=== PATIENT | female | born 1960 | race African-American/Black ===

== ENCOUNTER 2019-04-15 22:11 | Observation (INO) | payer SELFPAY ==
--- NOTE | 2019-04-15 22:44 | PDOC ---
History of Present Illness - General Chief Complaint: Chest Pain Stated Complaint: CHEST PAIN Time Seen by Provider: 04/15/19 22:44 - History of Present Illness Initial Comments: HPI: 58yo F with PMH of HTN, HLD, CHF, Pacemaker presenting with midsternal chest pain and shortness of breath since Tuesday. Patient has not taken her lasix since that time because her temporary insurance card did not work. She believes she is having this pain because of not being on lasix. Reports dyspnea on exertion, cannot walk to the bathroom without feeling short of breath. No PND, uses 1-2 pillows at night. Has not noticed any leg swelling. Is not on a fluid restricted diet. Chest pain is described as "pressure" and it is nonradiating. Reporting some associated diaphoresis and nausea, but no vomiting. Nonsmoker. No family history of heart problems. No hemoptysis, no recent surgical history, no recent immobilization, no hormone use, no history of DVT or PE. Last saw her inspector heating and refrigeration in July. Denies fever, but endorses chills. PCP: None Cardio: Dr. Alfaro Meds (via pill bottles brought in by patient): Losartan 25mg Carvedilol 25mg Furosemide 40mg Atorvastatin 20mg ROS: Constitutional: no fever, +chills HEENT: no throat pain, no dysphagia Cardiovascular: +chest pain, no palpitations Respiratory: no cyanosis, +shortness of breath Gastrointestinal: no abdominal pain, no diarrhea Genitourinary: no dysuria, no hematuria Musculoskeletal: no myalgia, no arthralgia Skin: no rash, no itching Neurologic: no headache, no syncope PE: General: Awake, alert, and fully oriented, in no acute distress Head: No signs of trauma Eyes: EOMI, sclera anicteric ENT: Moist mucus membranes Neck: Normal ROM, supple Lungs: Lungs clear, Normal breath sounds Cardio: Regular rhythm, S1 and S2 present Abdomen: Soft, nontender. No guarding, no rebound, no masses Extremities: Normal range of motion, Distal pulses present, No calf tenderness, No BLE edema SKIN: Warm, Dry, normal turgor Neurologic: Cranial nerves II through XII grossly intact. Normal speech ED Course/MDM: DDX including but not limited to ACS, PE, PNA, anemia, metabolic derangement Labs, EKG, CXR 04/15/19 22:44 EKG: rate 87, QTc 507, ventricular paced rhythm with p waves Tylenol for pain Home Lasix Will reassess 04/16/19 00:23 CBC WBC 7.4 K/mm3 (4.0-10.0) 04/15/19 23:30 RBC 5.38 M/mm3 (3.60-5.2) H 04/15/19 23:30 Hgb 12.5 GM/dL (10.7-15.3) 04/15/19 23:30 Hct 39.5 % (32.4-45.2) 04/15/19 23:30 MCV 73.3 fl (80-96) L 04/15/19 23:30 MCH 23.3 pg (25.7-33.7) L 04/15/19 23:30 MCHC 31.8 g/dl (32.0-36.0) L 04/15/19 23:30 RDW 16.5 % (11.6-15.6) H 04/15/19 23:30 Plt Count 245 K/MM3 (134-434) D 04/15/19 23:30 MPV 10.8 fl (7.5-11.1) 04/15/19 23:30 Absolute Neuts (auto) 4.0 K/mm3 (1.5-8.0) 04/15/19 23:30 Neutrophils % 53.9 % (42.8-82.8) D 04/15/19 23:30 Lymphocytes % 36.4 % (8-40) D 04/15/19 23:30 Monocytes % 7.7 % (3.8-10.2) 04/15/19 23:30 Eosinophils % 0.9 % (0-4.5) 04/15/19 23:30 Basophils % 1.1 % (0-2.0) 04/15/19 23:30 Nucleated RBC % 0 % (0-0) 04/15/19 23:30 No leukocytosis No anemia CMP Sodium 137 mmol/L (136-145) 04/15/19 23:30 Potassium 4.0 mmol/L (3.5-5.1) 04/15/19 23:30 Chloride 104 mmol/L (98-107) 04/15/19 23:30 Carbon Dioxide 25 mmol/L (21-32) 04/15/19 23:30 Anion Gap 8 MMOL/L (8-16) 04/15/19 23:30 BUN 9.7 mg/dL (7-18) 04/15/19 23:30 Creatinine 1.2 mg/dL (0.55-1.3) 04/15/19 23:30 Est GFR (CKD-EPI)AfAm 58.10 04/15/19 23:30 Est GFR (CKD-EPI)NonAf 50.13 04/15/19 23:30 Random Glucose 95 mg/dL (74-106) 04/15/19 23:30 Calcium 9.3 mg/dL (8.5-10.1) 04/15/19 23:30 Total Bilirubin 0.6 mg/dL (0.2-1) 04/15/19 23:30 AST 35 U/L (15-37) 04/15/19 23:30 ALT 44 U/L (13-61) 04/15/19 23:30 Alkaline Phosphatase 111 U/L (45-117) 04/15/19 23:30 Creatine Kinase 209 U/L (26-192) H 04/15/19 23:30 Creatine Kinase Index 0.7 % (0.0-5.0) 04/15/19 23:30 CK-MB (CK-2) 1.6 ng/mL (0.5-3.6) 04/15/19 23:30 Troponin I < 0.02 ng/ml (0.00-0.05) 04/15/19 23:30 B-Natriuretic Peptide 1408.0 pg/ml (5-125) H 04/15/19 23:30 Total Protein 8.0 g/dl (6.4-8.2) 04/15/19 23:30 Albumin 4.6 g/dl (3.4-5.0) 04/15/19 23:30 Electrolytes Normal Cr Tpn undetectable BNP elevated CXR without acute pathology, my impression HEART score of 4 Plan for admission; observation is appropriate as patient with suspected cardiac ischemia with nondiagnostic initial evaluation requiring further immediate evaluation such as stress testing, imaging, and repeat laboratory testing to clarify diagnosis [employer] sent; awaiting callback 04/16/19 01:[address] Davalos who accepted patient for tele obs under Dr. Contreras 04/16/19 01:58 Past History - Past Medical History Allergies/Adverse Reactions: Allergies Allergy/AdvReac Type Severity Reaction Status Date / Time No Known Allergies Allergy Verified 04/15/19 22:15 Home Medications: Ambulatory Orders Atorvastatin Ca [Lipitor] 20 mg PO HS 04/16/19 Carvedilol [Coreg -] 25 mg PO BID 04/16/19 Furosemide [Lasix] 40 mg PO DAILY 04/16/19 Losartan Potassium [Cozaar -] 25 mg PO DAILY 04/16/19 Cardiac Disorders: Yes (PACEMAKER,[place]) COPD: No - Surgical History Abdominal Surgery: Yes Appendectomy: Yes Cardiac Surgery: Yes (DEFIB) - Immunization History Immunization Up to Date: Yes - Psycho Social/Smoking Cessation Hx Smoking Status: Yes Smoking History: Never smoked Have you smoked in the past 12 months: No Number of Cigarettes Smoked Daily: 0 If you are a former smoker, when did you quit?: 07/2013 'Breaking Loose' booklet given: 11/18/13 Hx Alcohol Use: No Drug/Substance Use Hx: No Substance Use Type: None *Physical Exam - Vital Signs Last Vital Signs Temp Pulse Resp BP Pulse Ox 98.1 F 97 H 18 177/102 H 96 04/15/19 22:12 04/15/19 22:12 04/15/19 22:12 04/15/19 22:12 04/15/19 22:12 Heart Score/ECG Review - History History: Moderately suspicious - Electrocardiogram EKG: Normal - Age Age: 45-65 - Risk Factors Risk Factors Heart Score: Yes Hx Hypercholesterolemia, Yes Hx Hypertension, Yes Hx Obesity Based on the list above the patient has:: >/=3 risk factors or Hx atherosclerotic disease - Troponin Troponin: </= normal limit - Score Heart Score - Total: 4 ED Treatment Course - LABORATORY CBC & Chemistry Diagram: 04/15/19 23:30 04/15/19 23:30 Discharge - Discharge Information Problems reviewed: Yes Clinical Impression/Diagnosis: Chest pain Qualifiers: Chest pain type: unspecified Qualified Code(s): R07.9 - Chest pain, unspecified CHF (congestive heart failure) Qualifiers: Heart failure type: unspecified Heart failure chronicity: acute on chronic Qualified Code(s): I50.9 - Heart failure, unspecified Condition: Guarded - Admission Yes - Follow up/Referral - Patient Discharge Instructions - Post Discharge Activity
[2019-04-15] MEDS ORDERED: ACETAMINOPHEN 325 MG TABLET (FP) PO ONE (23:28)
[2019-04-15] MEDS ORDERED: ACETAMINOPHEN 325 MG TABLET (FP) ONE (23:37)
[2019-04-15 23:59] LABS: BASO % 1.1 % (0-2.0); EOS % 0.9 % (0-4.5); HEMATOCRIT 39.5 % (32.4-45.2); HEMOGLOBIN 12.5 GM/dL (10.7-15.3); LYMPH % 36.4 % (8-40); MCH 23.3 pg (25.7-33.7); MCHC 31.8 g/dl (32.0-36.0); MEAN CELL VOLUME 73.3 fl (80-96); MEAN PLT VOLUME 10.8 fl (7.5-11.1); MONO % 7.7 % (3.8-10.2); NEUT % 53.9 % (42.8-82.8); PLATELET COUNT 245 K/MM3 (134-434); RBC 5.38 M/mm3 (3.60-5.2); RDW 16.5 % (11.6-15.6); WHITE BLOOD COUNT 7.4 K/mm3 (4.0-10.0)
[2019-04-16] MEDS ORDERED: FUROSEMIDE 40 MG/4 ML INJECTABLE VIAL IVPUSH ONE (00:09)
[2019-04-16 00:30] LABS: ALBUMIN 4.6 g/dl (3.4-5.0); BILIRUBIN,TOTAL 0.6 mg/dL (0.2-1); BLOOD UREA NITROGEN 9.7 mg/dL (7-18); CALCIUM 9.3 mg/dL (8.5-10.1); CREATININE 1.2 mg/dL (0.55-1.3)
[2019-04-16 00:51] LABS: INR 1.01 (0.83-1.09); PROTHROMBIN TIME (PATIENT) 11.9 SEC (9.7-13.0)
[2019-04-16 00:54] LABS: ACTIVATED PTT 44.1 SECONDS (25.2-36.5)
[2019-04-16] MEDS ORDERED: FUROSEMIDE 40 MG/4 ML INJECTABLE VIAL ONE (01:14)
--- NOTE | 2019-04-16 01:54 | PN ---
Teaching Attending Note Name of Resident: Christopher Pastor ATTENDING PHYSICIAN STATEMENT I saw and evaluated the patient. I reviewed the resident's note and discussed the case with the resident. I agree with the resident's findings and plan as documented. SUBJECTIVE: Patient is a 58 year old woman with a PMH of HTN, HLD, CHF, GERD and Pacemaker presenting with midsternal chest pain and shortness of breath for 2 days. Patient has not taken her lasix since that time because her temporary insurance card did not work. She believes she is having this pain because of not being on lasix. Reports dyspnea on exertion, cannot walk to the bathroom without feeling short of breath. No PND, uses 1-2 pillows at night. Has not noticed any leg swelling. Is not on a fluid restricted diet. Chest pain is described as "pressure" and it is nonradiating. Reporting some associated diaphoresis and nausea, but no vomiting. Nonsmoker. No family history of heart problems. No hemoptysis, no recent surgical history, no recent immobilization, no hormone use , no history of DVT or PE. Last saw her leisure travel agent in July. Has had dysphagia to liquids and solids for about 2 months. Denies fever, but has chills. OBJECTIVE: Alert Vital Signs Period Temp Pulse Resp BP Sys/Schreiber Pulse Ox Last 24 Hr 98.1 F-98.3 F 87-97 16-18 156-177/98-102 96-100 HEENT: No Jaundice, eye redness or discharge, PERRLA, EOMI. Normocephalic, atraumatic. External ears are normal and hearing is grossly intact. No nasal discharge. Neck: Supple, nontender. No palpable adenopathy or thyromegaly. No JVD Chest: Good effort. Clear to auscultation and percussion. Heart: Regular. No S3, rub or murmur Abdomen: Not distended, soft, nontender and no HSM. No rebound or guarding. Normal bowel sounds. Ext: Peripheral pulses intact. No leg edema. Skin: Warm and dry. No petechiae, rash or ecchymosis. Neuro: Alert. Oriented x3. CN 2-12 grossly intact. Sensation grossly intact in all four extremities and DTR are symmetric. Psych: Appropriate mood and affect. Good insight. Home Medications Medication Instructions Recorded Atorvastatin Ca [Lipitor] 20 mg PO HS 11/25/19 Carvedilol [Coreg -] 25 mg PO BID 04/16/19 Furosemide [Lasix] 40 mg PO DAILY 04/16/19 Losartan Potassium [Cozaar -] 25 mg PO DAILY 04/16/19 Abnormal Lab Results 04/15/19 04/15/19 04/15/19 23:30 23:30 23:30 RBC 5.38 H MCV 73.3 L MCH 23.3 L MCHC 31.8 L RDW 16.5 H PTT (Actin FS) Creatine Kinase 209 H B-Natriuretic Peptide 1408.0 H 04/15/19 23:30 RBC MCV MCH MCHC RDW PTT (Actin FS) 44.1 H Creatine Kinase B-Natriuretic Peptide ASSESSMENT AND PLAN: 1. Chest pain and ?CHF exacerbation - Chest pain is atypical and may be due to GI disorder. EKG shows ventricular paced rhythm with a rate of [address] no significant new ST-T wave changes. Initial troponin is negative. Will monitor on telemetry and rule out ACS. CXR shows cardiomegaly and pacemaker is in place. ECHO from 10/29/13 showed severely reduced LV systolic function, severe global LV hypokinesis and LVEF of 40%. She currently does not have the ordoñez physical findings of CHF, so we will rule out pulmonary embolism with Chest CTA. Also get barium swallow with follow through, treat with Protonix bid since aspiration may be inducing SOB. Repeat ECHO, treat with escalating doses of lasix to achieve diuresis, restrict dietary salt intake and get daily standing weight. Consult Cardiology and GI. She got tylenol PO and Lasix 40 mg IV in the ER. Will continue comprehensive care for all of patients comorbid conditions. 2. Obesity Counseled on the risks associated with obesity. Will provide patient all the necessary assistance, counseling and positive reinforcement to facilitate weight loss. Consult workers compensation claims examiner. 3. Hypertension - Restart suitable outpatient antihypertensive drugs when clinically appropriate. Revise regimen to ensure [id number] excellent BP control and dependency counselor patient on the injurious effects of uncontrolled hypertension. Nonpharmacologic measures to control hypertension like weight loss , salt restriction and exercise discussed. Importance of adherence to treatment regimen and attainment of normotension emphasized. 4. DVT prophylaxis - Lovenox 40 mg SQ q 24 hours. 5. Advance directives - Full code
[2019-04-16] MEDS ORDERED: MELATONIN 5 MG TABLETS PO ONE ×2 (02:10→19:39)
--- NOTE | 2019-04-16 02:33 | PDOC ---
Documentation entered by Gonzalez Solomon SCRIBE, acting as scribe for Daniela Page MD. Daniela Page MD: This documentation has been prepared by the Juanito cobian Daniel, SCRIBE, under my direction and personally reviewed by me in its entirety. I confirm that the documentation accurately reflects all work, treatment, procedures, and medical decision making performed by me. Attending Attestation - Resident Resident Name: Ansley Tate - ED Attending Attestation I have performed the following: I have examined & evaluated the patient, The case was reviewed & discussed with the resident, I agree w/resident's findings & plan - HPI HPI: 04/16/19 00:15 The patient is a 58 year old female with a past medical history of HTN, HLD, CHF , and pacemaker here today for evaluation of 4 days of chest pain. The patient reports that she ran out of lasix and is unable to get more due to her temporary insurance card not working anymore. Patient attributes her chest pain to her running out of lasix and describes her pain as a pressure and notes associated diaphoresis, nausea, chills, dyspnea on exertion, and non productive cough. Patient denies headache, lightheadedness. Denies fever. Denies vomiting, diarrhea, abdominal pain. Allergies: NKA 04/16/19 02:13 Pt has chest pain that has been ongoing; now worse because she is out of her antiHTN and diuretic and she feels chest tightness. - Physicial Exam PE: 04/16/19 02:13 Heart lungs normal Abd soft NT ND Pt has no flank pain No pitting edema - Medical Decision Making 04/16/19 02:14 Labs normal; ekg same as old. 04/16/19 02:26 Pt will be admitted to [facility] for observation of CP; she has no means for getting her meds. Pt has mild CHF exacerbation 04/16/19 05:52 Pt admitted but still in the ER and the medicine docs ordered a CTA: Referring Physician: KENNEDI LUNA Patient Name: JACINTO WHALEN THIS IS A PRELIMINARY REPORT FROM [facility] DATE OF SERVICE: 2019-04-16 05:05:51 IMAGES: 215 EXAM: CT ANGIOGRAM CHEST WITH CONTRAST AND 3-D ANGIOGRAPHIC RECONSTRUCTIONS HISTORY: 58-Year-Old Female Assess For Pulmonary Embolism. COMPARISON: None. TECHNIQUE: Following IV contrast administration thin axial images were obtained through the chest for pulmonary artery evaluation by pulmonary embolism protocol with 3-D post-processing included paracoronal and parasagittal reformatted 3-D MIP images which were permanently stored in the patient medical record PACS. FINDINGS: No large central pulmonary embolism. Evaluation of the distal segmental branches are limited by artifact. No aortic aneurysm or dissection. Mild cardiomegaly with mild left ventricular hypertrophy and a biventricular defibrillator. Small pericardial effusion. Mild basilar atelectasis. No pleural effusion. No pneumothorax. Heterogeneous nonspecific enlarged thyroid most likely due to a multinodular thyroid goiter. Bilateral nonobstructing nephrolithiasis. Small hiatal hernia. Mild nonspecific wall thickening of the stomach most likely due to gastritis. Moderate degenerative joint disease of the acromioclavicular joints with subacromial and subclavicular osteophytes may be associated with impingement of the supraspinatus tendon. Mild to moderate degenerative disc disease. IMPRESSION: No large central pulmonary embolism. Mild cardiomegaly with mild left ventricular hypertrophy and a biventricular defibrillator. Small pericardial effusion. Heterogeneous nonspecific enlarged thyroid most likely due to a multinodular thyroid goiter. If clinically indicated follow-up outpatient thyroid ultrasound may be needed. Bilateral nonobstructing nephrolithiasis. Small hiatal hernia. Mild nonspecific wall thickening of the stomach most likely due to gastritis. Moderate degenerative joint disease of the acromioclavicular joints with subacromial and subclavicular osteophytes may be associated with impingement of the supraspinatus tendon. Mild to moderate degenerative disc disease. This CT exam was performed using one or
[2019-04-16] MEDS ORDERED: CARVEDILOL 25 MG TABLET (FP) PO ONE (02:59)
[2019-04-16] MEDS ORDERED: CARVEDILOL 12.5 MG TABLET (FP) ONE ×2 (03:19→10:31)
--- NOTE | 2019-04-16 04:32 | HP ---
CHIEF COMPLAINT: Chest pain PCP: None HISTORY OF PRESENT ILLNESS: 58 y/o female PMH HTN, HLD, systolic CHF with pacemaker c/o chest pain. The pain has been present for 2 months, is located in the mid-epigastric region, is burning in nature, radiates across her chest and LEFT arm, is made better with rest and the LEFT lateral decubitis position, on/off in course, and is 7/10. Associated symptoms include lying flat, eating meals, and was reproducible with consumption of ED orange juice. She describes additional symptoms of dysphagia to liquids and solids. She has had concurrent non-productive cough. She has not taken any antacids or PPIs nor other medications outside her home regimen of medications (below). She states that she has shortness of breath. She denies orthopnea, PND but does endorse SOB after approximately 50 feet of walking. She has not been recently ill, had sick contacts or traveled great distances. She has not have fever but has had nausea, vomiting x1 (stomach acid, non-bloody), and chills. Pt has not taken home medications since 13 Apr 2019 2/2 lapse in insurance coverage. She has moved from [place] to [place]. ER course was notable for: (1) BP of 177/102, repeat 180/93 (2) Coreg 25 mg administered (3) Lasix 40 mg administered and pt urinated x4 Recent Travel: Denies Family hx: Adopted/unaware of health of biological parents PAST MEDICAL HISTORY: HTN, HLD, systolic CHF with pacemaker PAST SURGICAL HISTORY: Pacemaker (2005), appendectomy (1993), x2, hysterectomy Social History: Smoking: never Alcohol: social Drugs: denies Allergies: No Known Allergies Allergy (Verified 04/15/19 22:15) HOME MEDICATIONS: Home Medications Medication Instructions Recorded Atorvastatin Ca [Lipitor] 20 mg PO HS 04/16/19 Carvedilol [Coreg -] 25 mg PO BID 04/16/19 Furosemide [Lasix] 40 mg PO DAILY 04/16/19 Losartan Potassium [Cozaar -] 25 mg PO DAILY 04/16/19 REVIEW OF SYSTEMS CONSTITUTIONAL: Absent: fever, chills, diaphoresis, generalized weakness, malaise, loss of appetite, weight change HEENT: Absent: rhinorrhea, nasal congestion, throat pain, throat swelling, difficulty swallowing, mouth swelling, ear pain, eye pain, visual changes CARDIOVASCULAR: Absent: chest pain, syncope, palpitations, irregular heart rate, lightheadedness , peripheral edema RESPIRATORY: Absent: cough, shortness of breath, dyspnea with exertion, orthopnea, wheezing, stridor, hemoptysis GASTROINTESTINAL: Absent: abdominal pain, abdominal distension, nausea, vomiting, diarrhea, constipation, melena, hematochezia GENITOURINARY: Absent: dysuria, frequency, urgency, hesitancy, hematuria, flank pain, genital pain MUSCULOSKELETAL: Absent: myalgia, arthralgia, joint swelling, back pain, neck pain SKIN: Absent: rash, itching, pallor HEMATOLOGIC/IMMUNOLOGIC: Absent: easy bleeding, easy bruising, lymphadenopathy, frequent infections ENDOCRINE: Absent: unexplained weight gain, unexplained weight loss, heat intolerance, cold intolerance NEUROLOGIC: Absent: headache, focal weakness or paresthesias, dizziness, unsteady gait, seizure, mental status changes, bladder or bowel incontinence PSYCHIATRIC: Absent: anxiety, depression, suicidal or homicidal ideation, hallucinations. PHYSICAL EXAMINATION Vital Signs - 24 hr 04/15/19 04/15/19 04/16/19 22:12 22:15 03:54 Temperature 98.1 F 98.3 F Pulse Rate 97 H Pulse Rate [ 87 97 H Left Radial] Respiratory 18 16 18 Rate Blood Pressure 177/102 H Blood Pressure 156/98 132/68 [Left Arm] O2 Sat by Pulse 96 100 97 Oximetry (%) GENERAL: AOx3, in no acute distress, lying in LEFT lateral decubitus HEAD: NCAT EYES: JUAN PABLO, EOMI, conjunctiva clear ENT: Ears normal, nares patent, oropharynx clear without exudates. Moist mucous membranes. NECK: Normal range of motion, supple without lymphadenopathy, JVD, or masses. LUNGS: CTAB. No wheezes, and NO crackles. No accessory muscle use. HEART: RRR s1 s2 ABDOMEN: Vertical surgical scar. Soft, BS present in all 4 quadrants, non- distended, no JVD, MUSCULOSKELETAL: No bony deformities or tenderness. No CVA tenderness. UPPER EXTREMITIES: 2+ pulses, warm, well-perfused. No cyanosis. No clubbing. No peripheral edema. LOWER EXTREMITIES: NO edema BL. 2+ pulses, warm, well-perfused. No calf tenderness. No peripheral edema. NEUROLOGICAL: No focal deficits. Cranial nerves II-XII intact. Normal speech. Gait not appreciated. PSYCHIATRIC: Cooperative. Good eye contact. Appropriate mood and affect. SKIN: Surgical scar on left chest. Warm, dry, normal turgor, no rashes or lesions noted, normal capillary refill. Laboratory Results - last 24 hr 04/15/19 04/15/19 04/15/19 23:30 23:30 23:30 WBC 7.4 RBC 5.38 H Hgb 12.5 Hct 39.5 MCV 73.3 L MCH 23.3 L MCHC 31.8 L RDW 16.5 H Plt Count 245 D MPV 10.8 Absolute Neuts (auto) 4.0 Neutrophils % 53.9 D Lymphocytes % 36.4 D Monocytes % 7.7 Eosinophils % 0.9 Basophils % 1.1 Nucleated RBC % 0 PT with INR INR PTT (Actin FS) Sodium 137 Potassium 4.0 Chloride 104 Carbon Dioxide 25 Anion Gap 8 BUN 9.7 Creatinine 1.2 Est GFR (CKD-EPI)AfAm 58.10 Est GFR (CKD-EPI)NonAf 50.13 Random Glucose 95 Calcium 9.3 Total Bilirubin 0.6 AST 35 ALT 44 Alkaline Phosphatase 111 Creatine Kinase 209 H Creatine Kinase Index 0.7 CK-MB (CK-2) 1.6 Troponin I < 0.02 B-Natriuretic Peptide Total Protein 8.0 Albumin 4.6 04/15/19 04/15/19 23:30 23:30 WBC RBC Hgb Hct MCV MCH MCHC RDW Plt Count MPV Absolute Neuts (auto) Neutrophils % Lymphocytes % Monocytes % Eosinophils % Basophils % Nucleated RBC % PT with INR 11.90 INR 1.01 PTT (Actin FS) 44.1 H Sodium Potassium Chloride Carbon Dioxide Anion Gap BUN Creatinine Est GFR (CKD-EPI)AfAm Est GFR (CKD-EPI)NonAf Random Glucose Calcium Total Bilirubin AST ALT Alkaline Phosphatase Creatine Kinase Creatine Kinase Index CK-MB (CK-2) Troponin I B-Natriuretic Peptide 1408.0 H Total Protein Albumin ASSESSMENT/PLAN: 58 y/o female PMH HTN, HLD, systolic CHF with pacemaker c/o chest pain. Pain reproducible. Trop neg x1. Clinical presentation absent of edema and adventitious lung sounds. # GERD - Protonix 40 mg BID for 6 weeks - Barium swallow # r/o PE - CT: No large PE. Gastric wall thickening. # Systolic CHFrEF - i/o - Echo (last echo 2013: global hypokinesis, EF 40) - Refer to cardiology - UA #F/E/N - NS - Cont. to monitor - Regular diet # DVT prophylaxis - Heparin SQ # Disposition - Admit to observation Christopher Pastor MD Visit type - Emergency Visit Emergency Visit: Yes ED Registration Date: 04/16/19 Care time: The patient presented to the Emergency Department on the above date and was hospitalized for further evaluation of their emergent condition. - New Patient This patient is new to me today: Yes Date on this admission: 04/16/19 - Critical Care Critical Care patient: No ATTENDING PHYSICIAN STATEMENT I saw and evaluated the patient. I reviewed the resident's note and discussed the case with the resident. I agree with the resident's findings and plan as documented. SUBJECTIVE: OBJECTIVE: ASSESSMENT AND PLAN:
[2019-04-16] MEDS ORDERED: HEPARIN NA (PORCINE) 5,000 UNITS/ML 1ML VIAL ONE (06:10)
[2019-04-16] MEDS: HEPARIN NA (PORCINE) 5,000 UNITS/ML 1ML VIAL SQ SCH ×3 (06:22→21:16)
[2019-04-16 07:54] LABS: HEMATOCRIT 37.6 % (32.4-45.2); MCH 23.2 pg (25.7-33.7); MCHC 31.9 g/dl (32.0-36.0); MEAN CELL VOLUME 72.7 fl (80-96); MEAN PLT VOLUME 10.6 fl (7.5-11.1); PLATELET COUNT 218 K/MM3 (134-434); RBC 5.17 M/mm3 (3.60-5.2); WHITE BLOOD COUNT 5.4 K/mm3 (4.0-10.0)
[2019-04-16 08:22] LABS: ALBUMIN 4.4 g/dl (3.4-5.0); BILIRUBIN,TOTAL 0.9 mg/dL (0.2-1); BLOOD UREA NITROGEN 7.4 mg/dL (7-18); CALCIUM 9.2 mg/dL (8.5-10.1); CREATININE 1.1 mg/dL (0.55-1.3); MAGNESIUM 1.5 mg/dL (1.8-2.4); PHOSPHOROUS 2.9 mg/dL (2.5-4.9); POTASSIUM 3.9 mmol/L (3.5-5.1); TOT PROT 7.8 g/dl (6.4-8.2)
[2019-04-16 10:47] LABS: URINE APPEARANCE CLEAR; URINE BILIRUBIN NEGATIVE (NEGATIVE); URINE COLOR YELLOW; URINE GLUCOSE (UA) NEGATIVE (NEGATIVE); URINE KETONE NEGATIVE (NEGATIVE); URINE LEUK ESTERASE NEGATIVE (NEGATIVE); URINE NITRITE NEGATIVE (NEGATIVE); URINE PROTEIN NEGATIVE (NEGATIVE); URINE UROBILINOGEN 0.2 mg/dL (0.2-1.0)
--- NOTE | 2019-04-16 10:55 | CON.CARD ---
Consult Consult Specialty:: Cardiology - History of Present Illness History of Present Illness: 58 y/o female PMH HTN, HLD, systolic CHF with pacemaker c/o chest pain. The pain has been present for 2 months, is located in the mid-epigastric region, is burning in nature, radiates across her chest and LEFT arm, is made better with rest and the LEFT lateral decubitis position, on/off in course, and is 7/10. Associated symptoms include lying flat, eating meals, and was reproducible with consumption of ED orange juice. She describes additional symptoms of dysphagia to liquids and solids. She has had concurrent non-productive cough. She has not taken any antacids or PPIs nor other medications outside her home regimen of medications (below). She states that she has shortness of breath. She denies orthopnea, PND but does endorse SOB after approximately 50 feet of walking. She has not been recently ill, had sick contacts or traveled great distances. She has not have fever but has had nausea, vomiting x1 (stomach acid, non-bloody), and chills. Pt has not taken home medications since 13 Apr 2019 2/2 lapse in insurance coverage. She has moved from [place] to [place]. ER course was notable for: (1) BP of 177/102, repeat 180/93 (2) Coreg 25 mg administered (3) Lasix 40 mg administered and pt urinated x4 Recent Travel: Denies Family hx: Adopted/unaware of health of biological parents PAST MEDICAL HISTORY: HTN, HLD, systolic CHF with pacemaker PAST SURGICAL HISTORY: Pacemaker (2005), appendectomy (1993), x2, hysterectomy Social History: Smoking: never Alcohol: social Drugs: denies - History Source History Provided By: Patient, Medical Record - Past Medical History Cardio/Vascular: Yes: CHF, HTN, Hyperlipdemia, Mitral Insufficiency, Other ( myocarditis, arrhythmia, icd) Pulmonary: Yes: Other ("asthma") - Past Surgical History Past Surgical History: Yes: AICD ([employer]), Appendectomy, Hysterectomy - Alcohol/Substance Use Hx Alcohol Use: No History of Substance Use: reports: None - Smoking History Smoking history: Never smoked Have you smoked in the past 12 months: No Aproximately how many cigarettes per day: 0 If you are a former smoker, when did you quit?: 07/2013 - Social History Usual Living Arrangement: Other ADL: Independent History of Recent Travel: No Home Medications - Allergies Allergies/Adverse Reactions: Allergies Allergy/AdvReac Type Severity Reaction Status Date / Time No Known Allergies Allergy Verified 04/15/19 22:15 - Home Medications Home Medications: Ambulatory Orders Atorvastatin Ca [Lipitor] 20 mg PO HS 04/16/19 Carvedilol [Coreg -] 25 mg PO BID 04/16/19 Furosemide [Lasix] 40 mg PO DAILY 04/16/19 Losartan Potassium [Cozaar -] 25 mg PO DAILY 04/16/19 Review of Systems - Review of Systems Constitutional: reports: No Symptoms Eyes: reports: No Symptoms HENT: reports: No Symptoms Neck: reports: No Symptoms Cardiovascular: reports: Chest Pain Respiratory: reports: No Symptoms Gastrointestinal: reports: No Symptoms Genitourinary: reports: No Symptoms Breasts: reports: No Symptoms Reported Musculoskeletal: reports: No Symptoms Integumentary: reports: No Symptoms Neurological: reports: No Symptoms Endocrine: reports: No Symptoms Hematology/Lymphatic: reports: No Symptoms Psychiatric: reports: No Symptoms Vital Signs: Vital Signs Temperature 98.3 F 04/15/19 22:15 Pulse Rate 88 04/16/19 08:32 Respiratory Rate 18 04/16/19 08:32 Blood Pressure 130/63 04/16/19 08:32 O2 Sat by Pulse Oximetry (%) 99 04/16/19 08:34 Constitutional: Yes: Well Nourished, No Distress, Calm Eyes: Yes: WNL, Conjunctiva Clear, EOM Intact HENT: Yes: WNL, Atraumatic, Normocephalic Neck: Yes: WNL, Supple, Trachea Midline Respiratory: Yes: WNL, Regular, CTA Bilaterally Gastrointestinal: Yes: WNL, Normal Bowel Sounds Renal/: Yes: WNL Cardiovascular: Yes: WNL, Regular Rate and Rhythm Musculoskeletal: Yes: WNL Extremities: Yes: WNL Integumentary: Yes: WNL Neurological: Yes: WNL, Alert, Oriented ...Motor Strength: WNL Psychiatric: Yes: WNL, Alert, Oriented - Other Data Labs, Other Data: CBC, BMP 04/16/19 06:55 04/16/19 06:55 INR, PTT INR 1.01 (0.83-1.09) 04/15/19 23:30 Troponin, BNP 04/15/19 04/15/19 04/16/19 23:30 23:30 06:55 Troponin I < 0.02 Cancelled B-Natriuretic Peptide 1408.0 H 04/16/19 06:55 Troponin I < 0.02 B-Natriuretic Peptide Troponin, BNP 04/15/19 04/15/19 04/16/19 23:30 23:30 06:55 Troponin I < 0.02 Cancelled B-Natriuretic Peptide 1408.0 H 04/16/19 06:55 Troponin I < 0.02 B-Natriuretic Peptide Imaging - Results Chest X-ray: Image Reviewed (no i/e) EKG: Pending Problem List - Problems (1) CHF (congestive heart failure) Code(s): I50.9 - HEART FAILURE, UNSPECIFIED Qualifiers: Heart failure type: unspecified Heart failure chronicity: acute on chronic Qualified Code(s): I50.9 - Heart failure, unspecified (2) Chest pain Code(s): R07.9 - CHEST PAIN, UNSPECIFIED Qualifiers: Chest pain type: unspecified Qualified Code(s): R07.9 - Chest pain, unspecified (3) Arrhythmia Code(s): I49.9 - CARDIAC ARRHYTHMIA, UNSPECIFIED (4) DVT prophylaxis Code(s): EQF0785 - (5) Dyspnea on exertion Code(s): R06.09 - OTHER FORMS OF DYSPNEA (6) Full code status Code(s): Z78.9 - OTHER SPECIFIED HEALTH STATUS (7) Hyperlipemia Code(s): E78.5 - HYPERLIPIDEMIA, UNSPECIFIED (8) Hypertension Code(s): I10 - ESSENTIAL (PRIMARY) HYPERTENSION Assessment/Plan HTN, HLD, systolic CHF with pacemaker c/o chest pain. The pain has been present for 2 months, is located in the mid-epigastric region, is burning in nature, radiates across her chest and LEFT arm, Plan ekg echo r/o mi PPM interrogation cont Lasix dvt plx
[2019-04-16] MEDS: CARVEDILOL 25 MG TABLET (FP) PO SCH ×2 (11:35→21:16)
[2019-04-16] MEDS: LOSARTAN POTASSIUM 25 MG TABLET PO SCH (11:35)
[2019-04-16] MEDS: FUROSEMIDE 40 MG TABLET (FP) PO SCH (11:35)
[2019-04-16] MEDS: PANTOPRAZOLE 40 MG TABLET (FP) PO SCH ×2 (11:36→21:15)
--- NOTE | 2019-04-16 13:01 | ECHO ---
Name: JACINTO WHALEN Exam:Adult Echocardiogram Study Date: 04/16/2019 10:27 AM Age: 58 yrs Reason For Study: CHF Height: 63 in Weight: 180 lb BSA: 1.8 m2 MMode/2D Measurements & Calculations IVSd: 1.1 cm Ao root diam: 2.7 cm LVIDd: 4.9 cm LA dimension: 4.4 cm LVIDs: 3.3 cm LVPWd: 1.4 cm LVPWs: 1.5 cm EDV(Teich): 113.2 ml ESV(Teich): 43.2 ml LVOT diam: 2.3 cm RV S Stan: 13.4 cm/sec Doppler Measurements & Calculations MV E max stan: 73.2 cm/sec Ao V2 max: 186.7 cm/sec MV A max stan: 112.0 cm/sec Ao max P.2 mmHg MV E/A: 0.65 MV dec time: 0.06 sec KRYSTINA(V,D): 1.7 cm2 LV V1 max P.4 mmHg MR max stan: 554.3 cm/sec LV V1 max: 77.6 cm/sec MR max P.1 mmHg TR max stan: 234.6 cm/sec PA V2 max: 122.8 cm/sec TR max P.0 mmHg PA max P.0 mmHg Med Peak E' Stan: 3.9 cm/sec Med E/e': 18.7 Lat Peak E' Stan: 8.5 cm/sec Lat E/e': 8.6 Procedure A complete two-dimensional transthoracic echocardiogram was performed (2D, M-mode, Doppler and color flow Doppler). Technically limited study. Left Ventricle The left ventricle is normal in size. Left ventricular systolic function is moderate to severely redu [place]. Ejection Fraction = 30-35%. LV diastology reveals elevated filling pressure with impaired relaxation. There is moderate to severe global hypokinesis of the left ventricle. Right Ventricle The right ventricle is normal size. There is a pacemaker lead in the right ventricle. The right ventr icular systolic function is normal. RV systolic TDI is 13 cm/s. Atria The left atrium is mildly dilated. Right atrial size is normal. Mitral Valve The mitral valve is normal in structure and function. There is mild mitral regurgitation. Tricuspid Valve The tricuspid valve is normal in structure and function. No tricuspid regurgitation. Aortic Valve There is mild aortic sclerosis.;. No aortic regurgitation is present. Pulmonic Valve The pulmonic valve is not well visualized. Great Vessels The aortic root is normal size. Pericardium/Pleura Trivial pericardial effusion not hemodynamically significant. Interpretation Summary Technically limited study The left ventricle is normal in size. Left ventricular systolic function is moderate to severely reduced. There is moderate to severe global hypokinesis of the left ventricle. Ejection Fraction = 30-35%. LV diastology reveals elevated filling pressure with impaired relaxation There is a pacemaker lead in the right ventricle. The right ventricular systolic function is normal. The left atrium is mildly dilated. Right atrial size is normal. There is mild mitral regurgitation. There is mild aortic sclerosis. Trivial pericardial effusion not hemodynamically significant Gavino Yee MD 04/16/2019 01:00 PM
[2019-04-16 13:32] VITALS: BMI 33.8
[2019-04-16] MEDS: ACETAMINOPHEN 325 MG TABLET (FP) PO PRN (13:35)
--- NOTE | 2019-04-16 15:00 | PN ---
Physical Exam: SUBJECTIVE: Patient seen and examined. Currently she is not having chest pain. She reports feeling that food and liquids get stuck in her lower chest. She says that she has to regurgitate or jump up and down to resolve the symptoms. She has been having these symptoms for a long time. OBJECTIVE: Vital Signs Period Temp Pulse Resp BP Sys/Schreiber Pulse Ox Last 24 Hr 97.9 F-98.3 F 87-98 16-18 130-177/63-102 96-100 GENERAL: The patient is awake, alert, and fully oriented, in no acute distress. LUNGS: Breath sounds equal, clear to auscultation bilaterally, no wheezes, no crackles, no accessory muscle use. HEART: Regular rate and rhythm, S1, S2 without murmur, rub or gallop. ABDOMEN: Obese, soft, nontender, nondistended, normoactive bowel sounds, no guarding, no rebound, no hepatosplenomegaly, no masses. EXTREMITIES: 2+ pulses, warm, well-perfused, no edema. Laboratory Results - last 24 hr 04/15/19 04/15/19 04/15/19 23:30 23:30 23:30 WBC 7.4 RBC 5.38 H Hgb 12.5 Hct 39.5 MCV 73.3 L MCH 23.3 L MCHC 31.8 L RDW 16.5 H Plt Count 245 D MPV 10.8 Absolute Neuts (auto) 4.0 Neutrophils % 53.9 D Lymphocytes % 36.4 D Monocytes % 7.7 Eosinophils % 0.9 Basophils % 1.1 Nucleated RBC % 0 PT with INR INR PTT (Actin FS) Sodium 137 Potassium 4.0 Chloride 104 Carbon Dioxide 25 Anion Gap 8 BUN 9.7 Creatinine 1.2 Est GFR (CKD-EPI)AfAm 58.10 Est GFR (CKD-EPI)NonAf 50.13 Random Glucose 95 Calcium 9.3 Phosphorus Magnesium Total Bilirubin 0.6 AST 35 ALT 44 Alkaline Phosphatase 111 Creatine Kinase 209 H Creatine Kinase Index 0.7 CK-MB (CK-2) 1.6 Troponin I < 0.02 B-Natriuretic Peptide Total Protein 8.0 Albumin 4.6 Urine Color Urine Appearance Urine pH Ur Specific [place] Urine Protein Urine Glucose (UA) Urine Ketones Urine Blood Urine Nitrite Urine Bilirubin Urine Urobilinogen Ur Leukocyte Esterase 04/15/19 04/15/19 04/16/19 23:30 23:30 06:55 WBC RBC Hgb Hct MCV MCH MCHC RDW Plt Count MPV Absolute Neuts (auto) Neutrophils % Lymphocytes % Monocytes % Eosinophils % Basophils % Nucleated RBC % PT with INR 11.90 INR 1.01 PTT (Actin FS) 44.1 H Sodium Potassium Chloride Carbon Dioxide Anion Gap BUN Creatinine Est GFR (CKD-EPI)AfAm Est GFR (CKD-EPI)NonAf Random Glucose Calcium Phosphorus Magnesium Total Bilirubin AST ALT Alkaline Phosphatase Creatine Kinase Creatine Kinase Index CK-MB (CK-2) Troponin I Cancelled B-Natriuretic Peptide 1408.0 H Total Protein Albumin Urine Color Urine Appearance Urine pH Ur Specific [place] Urine Protein Urine Glucose (UA) Urine Ketones Urine Blood Urine Nitrite Urine Bilirubin Urine Urobilinogen Ur Leukocyte Esterase 04/16/19 04/16/19 04/16/19 06:55 06:55 06:55 WBC 5.4 RBC 5.17 Hgb 12.0 Hct 37.6 MCV 72.7 L MCH 23.2 L MCHC 31.9 L RDW 16.0 H Plt Count 218 MPV 10.6 Absolute Neuts (auto) Neutrophils % Lymphocytes % Monocytes % Eosinophils % Basophils % Nucleated RBC % PT with INR INR PTT (Actin FS) Sodium 136 Potassium 3.9 Chloride 100 Carbon Dioxide 28 Anion Gap 8 BUN 7.4 Creatinine 1.1 Est GFR (CKD-EPI)AfAm 64.54 Est GFR (CKD-EPI)NonAf 55.69 Random Glucose 97 Calcium 9.2 Phosphorus 2.9 Magnesium 1.5 L Total Bilirubin 0.9 AST 26 ALT 40 Alkaline Phosphatase 114 Creatine Kinase Creatine Kinase Index CK-MB (CK-2) Troponin I < 0.02 B-Natriuretic Peptide Total Protein 7.8 Albumin 4.4 Urine Color Urine Appearance Urine pH Ur Specific [place] Urine Protein Urine Glucose (UA) Urine Ketones Urine Blood Urine Nitrite Urine Bilirubin Urine Urobilinogen Ur Leukocyte Esterase 04/16/19 10:15 WBC RBC Hgb Hct MCV MCH MCHC RDW Plt Count MPV Absolute Neuts (auto) Neutrophils % Lymphocytes % Monocytes % Eosinophils % Basophils % Nucleated RBC % PT with INR INR PTT (Actin FS) Sodium Potassium Chloride Carbon Dioxide Anion Gap BUN Creatinine Est GFR (CKD-EPI)AfAm Est GFR (CKD-EPI)NonAf Random Glucose Calcium Phosphorus Magnesium Total Bilirubin AST ALT Alkaline Phosphatase Creatine Kinase Creatine Kinase Index CK-MB (CK-2) Troponin I B-Natriuretic Peptide Total Protein Albumin Urine Color Yellow Urine Appearance Clear Urine pH 5.0 Ur Specific [place] 1.007 L Urine Protein Negative Urine Glucose (UA) Negative Urine Ketones Negative Urine Blood Negative Urine Nitrite Negative Urine Bilirubin Negative Urine Urobilinogen 0.2 Ur Leukocyte Esterase Negative Active Medications Generic Name Dose Route Start Last Admin Trade Name Freq PRN Reason Stop Dose Admin Acetaminophen 650 mg 04/16/19 13:16 04/16/19 13:35 Tylenol - PO 650 mg Q4H PRN Administration HEADACHE Atorvastatin Calcium 20 mg 04/16/19 22:00 Lipitor - PO HS ETHAN Carvedilol 25 mg 04/16/19 10:00 04/16/19 11:35 Coreg - PO 25 mg BID ETHAN Administration Furosemide 40 mg 04/16/19 10:00 04/16/19 11:35 Lasix - PO 40 mg DAILY ETHAN Administration Heparin Sodium (Porcine) 5,000 unit 04/16/19 06:00 04/16/19 13:35 Heparin - SQ 5,000 unit TID ETHAN Administration Losartan Potassium 25 mg 04/16/19 10:00 04/16/19 11:35 Cozaar - PO 25 mg DAILY ETHAN Administration Pantoprazole Sodium 40 mg 04/16/19 10:00 04/16/19 11:36 Protonix - PO 40 mg BID ETHAN Administration ASSESSMENT/PLAN: This is a 58 year old woman with a history of HTN, hyperlipidemia, chronic systolic heart failure, pacemaker who presented to the ED with chest pain. 1. Chest pain - Likely GI - Troponin negative x 2 - Echo shows moderate to severe global LV hypokinesis, LVEF 30-35%, impaired LV relaxation, mildly dilated LA, mild MR, trivial pericardial effusion 2. Odynophagia - Continue Protonix - Esophagram - GI evaluation for EGD 3. Chronic systolic heart failure - Stable - Continue Cozaar, Coreg, Lasix - Has pacemaker 4. HTN - Continue Cozaar, Coreg, Lasix 5. Hyperlipidemia - Continue Lipitor 6. Obesity with BMI 33.9 Visit type - Emergency Visit Emergency Visit: Yes ED Registration Date: 04/16/19 Care time: The patient presented to the Emergency Department on the above date and was hospitalized for further evaluation of their emergent condition. - New Patient This patient is new to me today: Yes Date on this admission: 04/16/19 - Critical Care Critical Care patient: No - Discharge Referral Referred to [facility] Med P.C.: No
--- NOTE | 2019-04-16 15:45 | CON.GI ---
Consult Consult Specialty:: Gastroenterology Referred by:: Dr. Pathak - History of Present Illness Chief Complaint: Chest pain, dysphagia History of Present Illness: 58yo female h/o HTN, systolic CHF, pacemaker presenting with chest pain and sob asked to evaluate for dysphagia x 3-6 months. Pt reports chest pain/pressure and sob over the past 1-2 months prompting ED evaluation. Seen by cardiology and undergoing testing r/o ACS. CTA negative for PE. Pt also reports intermittent dysphagia to solids and liquids over the past 3 -6 months, describes food and liquid sticking sometimes with regurgitation. Occasional heartburn though has not taken medicine for it. Denies odynophagia. Denies nocturnal symptoms. Feels she has lost weight though intentional on slim fast. Denies abdominal pain or n/v. Denies NSAID use. No prior EGD or colonoscopy. No known family h/o GI malignancy. - History Source History Provided By: Patient, Medical Record - Past Medical History Cardio/Vascular: Yes: CHF, HTN, Hyperlipdemia, Mitral Insufficiency, Other ( myocarditis, arrhythmia, icd) Pulmonary: Yes: Other ("asthma") - Past Surgical History Past Surgical History: Yes: AICD ([place]), Appendectomy, Hysterectomy - Alcohol/Substance Use Hx Alcohol Use: No History of Substance Use: reports: None - Smoking History Smoking history: Never smoked Have you smoked in the past 12 months: No Aproximately how many cigarettes per day: 0 If you are a former smoker, when did you quit?: 07/2013 - Social History Usual Living Arrangement: Other ADL: Independent History of Recent Travel: No Home Medications - Allergies Allergies/Adverse Reactions: Allergies Allergy/AdvReac Type Severity Reaction Status Date / Time No Known Allergies Allergy Verified 04/15/19 22:15 - Home Medications Home Medications: Ambulatory Orders Atorvastatin Ca [Lipitor] 20 mg PO HS 04/16/19 Carvedilol [Coreg -] 25 mg PO BID 04/16/19 Furosemide [Lasix] 40 mg PO DAILY 04/16/19 Losartan Potassium [Cozaar -] 25 mg PO DAILY 04/16/19 Review of Systems - Review of Systems Constitutional: reports: No Symptoms Cardiovascular: reports: Chest Pain, Shortness of Breath Gastrointestinal: reports: Dysphagia, Other (see HPI for details) Musculoskeletal: reports: No Symptoms Physical Exam-GI Vital Signs: Vital Signs Temperature 98.4 F 04/16/19 14:30 Pulse Rate 99 H 04/16/19 14:30 Respiratory Rate 18 04/16/19 14:30 Blood Pressure 120/75 04/16/19 14:30 O2 Sat by Pulse Oximetry (%) 100 04/16/19 14:15 Constitutional: Yes: Well Nourished, No Distress, Calm HENT: Yes: WNL, Other (No obvious oral lesions) Cardiovascular: Yes: WNL, Regular Rate and Rhythm Respiratory: Yes: WNL, Regular, CTA Bilaterally ...Palpate: Yes: Other (Abd soft, nt, nd) Labs: CBC, BMP 04/16/19 06:55 04/16/19 06:55 INR, PTT INR 1.01 (0.83-1.09) 04/15/19 23:30 Imaging - Results Cat Scan: Report Reviewed Problem List - Problems (1) Dysphagia Assessment/Plan: 58yo female h/o HTN, systolic CHF, pacemaker presenting with chest pain and sob asked to evaluate for dysphagia x 3-6 months. Dysphagia to solids and liquids noted, possibly GERD vs motility disorder, though cannot exclude underlying stricture, ring, or malignancy. -As pt currently undergoing cardiac workup for chest pain/sob would defer EGD until testing complete. -Recommend start with barium swallow/esophagram to further evaluate -PPI daily -Antireflux measures -Pending above and cardiac evaluation would consider EGD Code(s): R13.10 - DYSPHAGIA, UNSPECIFIED
--- NOTE | 2019-04-16 15:59 | EKG ---
Test Reason : Blood Pressure : / mmHG Vent. Rate : 093 BPM Atrial Rate : 093 BPM P-R Int : 000 ms QRS Dur : 142 ms QT Int : 428 ms P-R-T Axes : 107 -47 023 degrees QTc Int : 532 ms Ventricular-paced rhythm PREMATURE VENTRICULAR COMPLEXES ABNORMAL ECG WHEN COMPARED WITH ECG OF 20-NOV-2013 08:41, ELECTRONIC VENTRICULAR PACEMAKER IS SEEN PREMATURE VENTRICULAR COMPLEXES ARE SEEN Confirmed by MARIAELENA CELAYA MD ([id number]) on 04/16/2019 3:59:12 PM Referred By: Confirmed By:MARIAELENA CELAYA MD
[2019-04-16] MEDS: ATORVASTATIN CA 20 MG TABLET (FP) PO SCH (21:15)
[2019-04-17] MEDS: HEPARIN NA (PORCINE) 5,000 UNITS/ML 1ML VIAL SQ SCH ×3 (05:44→22:04)
[2019-04-17 09:17] LABS: BASO % 0.7 % (0-2.0); EOS % 2.3 % (0-4.5); HEMOGLOBIN 11.8 GM/dL (10.7-15.3); LYMPH % 47.8 % (8-40); MCH 22.8 pg (25.7-33.7); MEAN CELL VOLUME 73.4 fl (80-96); MONO % 9.2 % (3.8-10.2); RBC 5.18 M/mm3 (3.60-5.2); RDW 15.9 % (11.6-15.6); WHITE BLOOD COUNT 4.6 K/mm3 (4.0-10.0)
[2019-04-17 10:25] LABS: ALBUMIN 4.1 g/dl (3.4-5.0); BILIRUBIN,TOTAL 0.8 mg/dL (0.2-1); BLOOD UREA NITROGEN 11.1 mg/dL (7-18); CALCIUM 9.1 mg/dL (8.5-10.1); CREATININE 1.2 mg/dL (0.55-1.3); TOT PROT 7.5 g/dl (6.4-8.2)
--- NOTE | 2019-04-17 10:37 | PN ---
Progress Note, Physician History of Present Illness: 58 y/o female PMH HTN, HLD, systolic CHF with pacemaker c/o chest pain. The pain has been present for 2 months, is located in the mid-epigastric region, is burning in nature, radiates across her chest and LEFT arm, is made better with rest and the LEFT lateral decubitis position, on/off in course, and is 7/10. Associated symptoms include lying flat, eating meals, and was reproducible with consumption of ED orange juice. She describes additional symptoms of dysphagia to liquids and solids. She has had concurrent non-productive cough. She has not taken any antacids or PPIs nor other medications outside her home regimen of medications (below). She states that she has shortness of breath. She denies orthopnea, PND but does endorse SOB after approximately 50 feet of walking. She has not been recently ill, had sick contacts or traveled great distances. She has not have fever but has had nausea, vomiting x1 (stomach acid, non-bloody), and chills. Pt has not taken home medications since 13 Apr 2019 2/2 lapse in insurance coverage. She has moved from [place] to [place]. ER course was notable for: (1) BP of 177/102, repeat 180/93 (2) Coreg 25 mg administered (3) Lasix 40 mg administered and pt urinated x4 Recent Travel: Denies Family hx: Adopted/unaware of health of biological parents PAST MEDICAL HISTORY: HTN, HLD, systolic CHF with pacemaker PAST SURGICAL HISTORY: Pacemaker (2005), appendectomy (1993), x2, hysterectomy Social History: Smoking: never Alcohol: social Drugs: denies - Current Medication List Current Medications: Active Medications Acetaminophen (Tylenol -) 650 mg PO Q4H PRN PRN Reason: HEADACHE Last Admin: 04/16/19 13:35 Dose: 650 mg Atorvastatin Calcium (Lipitor -) 20 mg PO HS [facility] Last Admin: 04/16/19 21:15 Dose: 20 mg Carvedilol (Coreg -) 25 mg PO BID [facility] Last Admin: 04/16/19 21:16 Dose: 25 mg Furosemide (Lasix -) 40 mg PO DAILY [facility] Last Admin: 04/16/19 11:35 Dose: 40 mg Heparin Sodium (Porcine) (Heparin -) 5,000 unit SQ TID [facility] Last Admin: 04/17/19 05:44 Dose: 5,000 unit Losartan Potassium (Cozaar -) 25 mg PO DAILY [facility] Last Admin: 04/16/19 11:35 Dose: 25 mg Pantoprazole Sodium (Protonix -) 40 mg PO BID [facility] Last Admin: 04/16/19 21:15 Dose: 40 mg - Objective Vital Signs: Vital Signs Temperature 98.8 F 04/17/19 08:21 Pulse Rate 81 04/17/19 08:21 Respiratory Rate 18 04/17/19 08:21 Blood Pressure 138/83 04/17/19 08:21 O2 Sat by Pulse Oximetry (%) 100 04/16/19 22:00 Eyes: Yes: WNL, Conjunctiva Clear, EOM Intact HENT: Yes: WNL, Atraumatic, Normocephalic Neck: Yes: WNL, Supple, Trachea Midline Cardiovascular: Yes: WNL, Regular Rate and Rhythm Respiratory: Yes: WNL, Regular, CTA Bilaterally Gastrointestinal: Yes: WNL, Normal Bowel Sounds Genitourinary: Yes: WNL Musculoskeletal: Yes: WNL Extremities: Yes: WNL Edema: No Integumentary: Yes: WNL Neurological: Yes: WNL, Alert, Oriented ...Motor Strength: WNL Psychiatric: Yes: WNL Labs: CBC, BMP 04/17/19 06:30 04/17/19 06:30 INR, PTT INR 1.01 (0.83-1.09) 04/15/19 23:30 Problem List - Problems (1) CHF (congestive heart failure) Code(s): I50.9 - HEART FAILURE, UNSPECIFIED Qualifiers: Heart failure type: unspecified Heart failure chronicity: acute on chronic Qualified Code(s): I50.9 - Heart failure, unspecified (2) Chest pain Code(s): R07.9 - CHEST PAIN, UNSPECIFIED Qualifiers: Chest pain type: unspecified Qualified Code(s): R07.9 - Chest pain, unspecified (3) Arrhythmia Code(s): I49.9 - CARDIAC ARRHYTHMIA, UNSPECIFIED (4) DVT prophylaxis Code(s): [id number] - (5) Dyspnea on exertion Code(s): R06.09 - OTHER FORMS OF DYSPNEA (6) Full code status Code(s): Z78.9 - OTHER SPECIFIED HEALTH STATUS (7) Hyperlipemia Code(s): E78.5 - HYPERLIPIDEMIA, UNSPECIFIED (8) Hypertension Code(s): I10 - ESSENTIAL (PRIMARY) HYPERTENSION Assessment/Plan HTN, HLD, systolic CHF with pacemaker c/o chest pain. The pain has been present for 2 months, is located in the mid-epigastric region, is burning in nature, radiates across her chest and LEFT arm, BI- ICD interrogation showed normaly functioning device. EKG - bivi pacing ECHO severely reduced ef Plan cont Lasix add aldactone Old records regarding prior ischemic w/u dvt plx
[2019-04-17 10:47] LABS: PLATELET ESTIMATE NORMAL
[2019-04-17] MEDS: FUROSEMIDE 40 MG TABLET (FP) PO SCH (10:55)
[2019-04-17] MEDS: LOSARTAN POTASSIUM 25 MG TABLET PO SCH (10:55)
[2019-04-17] MEDS: CARVEDILOL 25 MG TABLET (FP) PO SCH ×2 (10:55→22:05)
[2019-04-17] MEDS: PANTOPRAZOLE 40 MG TABLET (FP) PO SCH (10:55)
[2019-04-17 10:56] LABS: MEAN PLT VOLUME 11.5 fl (7.5-11.1)
[2019-04-17 10:57] LABS: PLATELET COUNT 201 K/MM3 (134-434)
[2019-04-17] MEDS: SPIRONOLACTONE 25 MG TABLET (FP) PO SCH (10:59)
[2019-04-17] MEDS ORDERED: MAGNESIUM OXIDE 400 MG TABLET (FP) PO ONE (11:51)
--- NOTE | 2019-04-17 13:33 | PN ---
Physical Exam: SUBJECTIVE: Patient seen and examined at the bedside. mild chest pain at rest, but improving from admission. no pcp for follow up, made appt for her next week. OBJECTIVE: negative esophgram, for follow up with GI as an outpatient Vital Signs Period Temp Pulse Resp BP Sys/Schreiber Pulse Ox Last 24 Hr 98.1 F-98.8 F 81-99 18-20 108-153/57-91 96-100 GENERAL: The patient is awake, alert, and fully oriented, in no acute distress. HEAD: Normal with no signs of trauma. EYES: PERRL, extraocular movements intact, sclera anicteric, conjunctiva clear. No ptosis. ENT: Ears normal, nares patent, oropharynx clear without exudates, moist mucous membranes. NECK: Trachea midline, full range of motion, supple. LUNGS: Breath sounds equal, clear to auscultation bilaterally HEART: Regular rate and rhythm, S1, S2 without murmur, rub or gallop. ABDOMEN: Soft, nontender, nondistended, normoactive bowel sounds, no guarding, no rebound, no hepatosplenomegaly, no masses. EXTREMITIES: 2+ pulses, warm, well-perfused, no edema. NEUROLOGICAL: Normal speech, gait not observed. PSYCH: Normal mood, normal affect. SKIN: Warm, dry, normal turgor, no rashes or lesions noted Laboratory Results - last 24 hr 04/17/19 04/17/19 06:30 06:30 WBC 4.6 RBC 5.18 Hgb 11.8 Hct 38.0 MCV 73.4 L MCH 22.8 L MCHC 31.0 L RDW 15.9 H Plt Count 201 MPV 11.5 H Absolute Neuts (auto) 1.9 Neutrophils % 40.0 L D Lymphocytes % 47.8 H D Monocytes % 9.2 Eosinophils % 2.3 D Basophils % 0.7 Nucleated RBC % 0 Platelet Estimate Normal Sodium 140 Potassium 4.0 Chloride 104 Carbon Dioxide 26 Anion Gap 9 BUN 11.1 Creatinine 1.2 Est GFR (CKD-EPI)AfAm 58.10 Est GFR (CKD-EPI)NonAf 50.13 Random Glucose 121 H Calcium 9.1 Iron 109 TIBC 377 Iron Saturation 28 Unsaturated IBC 268 Ferritin 119.4 Total Bilirubin 0.8 AST 21 ALT 32 Alkaline Phosphatase 106 Total Protein 7.5 Albumin 4.1 Active Medications Generic Name Dose Route Start Last Admin Trade Name Freq PRN Reason Stop Dose Admin Acetaminophen 650 mg 04/16/19 13:16 04/16/19 13:35 Tylenol - PO 650 mg Q4H PRN Administration HEADACHE Atorvastatin Calcium 20 mg 04/16/19 22:00 04/16/19 21:15 Lipitor - PO 20 mg HS ETHAN Administration Carvedilol 25 mg 04/16/19 10:00 04/17/19 10:55 Coreg - PO 25 mg BID ETHAN Administration Furosemide 40 mg 04/16/19 10:00 04/17/19 10:55 Lasix - PO 40 mg DAILY ETHAN Administration Heparin Sodium (Porcine) 5,000 unit 04/16/19 06:00 04/17/19 05:44 Heparin - SQ 5,000 unit TID ETHAN Administration Losartan Potassium 25 mg 04/16/19 10:00 04/17/19 10:55 Cozaar - PO 25 mg DAILY ETHAN Administration Pantoprazole Sodium 40 mg 04/16/19 10:00 04/17/19 10:55 Protonix - PO 40 mg BID ETHAN Administration Spironolactone 25 mg 04/17/19 10:45 04/17/19 10:59 Aldactone - PO 25 mg DAILY ETHAN Administration ASSESSMENT/PLAN: Problem List - Problems (1) Chest pain Assessment/Plan: improved, mild chest pain at rest no shortness of breath on exertion Code(s): R07.9 - CHEST PAIN, UNSPECIFIED Qualifiers: Chest pain type: unspecified Qualified Code(s): R07.9 - Chest pain, unspecified (2) CHF (congestive heart failure) Assessment/Plan: continue cozaar, coreq and lasix. monitor intake and output. has ppm. Code(s): I50.9 - HEART FAILURE, UNSPECIFIED Qualifiers: Heart failure type: unspecified Heart failure chronicity: acute on chronic Qualified Code(s): I50.9 - Heart failure, unspecified (3) Dysphagia Assessment/Plan: negative esophgram. outpatient follow up with speech and swallow. Code(s): R13.10 - DYSPHAGIA, UNSPECIFIED (4) Hyperlipemia Code(s): E78.5 - HYPERLIPIDEMIA, UNSPECIFIED (5) Hypertension Code(s): I10 - ESSENTIAL (PRIMARY) HYPERTENSION Visit type - Emergency Visit Emergency Visit: Yes ED Registration Date: 04/16/19 Care time: The patient presented to the Emergency Department on the above date and was hospitalized for further evaluation of their emergent condition. - New Patient This patient is new to me today: Yes Date on this admission: 04/17/19 - Critical Care Critical Care patient: No - Discharge Referral Referred to [facility] No
[2019-04-17] MEDS: ACETAMINOPHEN 325 MG TABLET (FP) PO PRN (19:15)
--- NOTE | 2019-04-17 20:08 | PN.GI ---
GI Progress Note Subjective: No acute events Cardiac w/u in progress Esophagram / UGIS unrevealing - Objective Vital Signs: Vital Signs Temperature 98.0 F 04/17/19 18:00 Pulse Rate 92 H 04/17/19 18:00 Respiratory Rate 18 04/17/19 18:00 Blood Pressure 122/63 04/17/19 18:00 O2 Sat by Pulse Oximetry (%) 96 04/17/19 10:00 Constitutional: Calm Eyes: No: Sclera Icterus Cardiovascular: Yes: Regular Rate and Rhythm Respiratory: Yes: CTA Bilaterally Gastrointestinal Inspection: No: Distention ...Auscultate: Yes: Normoactive Bowel Sounds ...Palpate: Yes: Soft. No: Hepatomegaly, Splenomegaly, Tenderness Neurological: Yes: Alert Labs: CBC, BMP 04/17/19 06:30 04/17/19 06:30 INR, PTT INR 1.01 (0.83-1.09) 04/15/19 23:30 Problem List - Problems (1) Dysphagia Assessment/Plan: No obvious findings on esophagram Continue PPI for now. Protonix 40mg once daily Explaiend to Ms. Grimm that when cleared from a cardiology standpoint, upper endoscopy could be taken. Avoidance of bulk meats and breads with small portioned, well chewed meals. Code(s): R13.10 - DYSPHAGIA, UNSPECIFIED
[2019-04-17] MEDS: ATORVASTATIN CA 20 MG TABLET (FP) PO SCH (22:05)
[2019-04-18 06:46] LABS: BASO % 0.6 % (0-2.0); EOS % 1.4 % (0-4.5); HEMATOCRIT 34.5 % (32.4-45.2); HEMOGLOBIN 10.9 GM/dL (10.7-15.3); LYMPH % 48.7 % (8-40); MCH 22.9 pg (25.7-33.7); MCHC 31.6 g/dl (32.0-36.0); MEAN CELL VOLUME 72.7 fl (80-96); MONO % 8.3 % (3.8-10.2); PLATELET COUNT 175 K/MM3 (134-434); RBC 4.74 M/mm3 (3.60-5.2); RDW 16.1 % (11.6-15.6)
[2019-04-18] MEDS: HEPARIN NA (PORCINE) 5,000 UNITS/ML 1ML VIAL SQ SCH ×2 (06:54→14:08)
[2019-04-18 07:13] LABS: ALBUMIN 3.7 g/dl (3.4-5.0); BILIRUBIN,TOTAL 0.5 mg/dL (0.2-1); BLOOD UREA NITROGEN 16.8 mg/dL (7-18); MAGNESIUM 1.9 mg/dL (1.8-2.4); POTASSIUM 3.7 mmol/L (3.5-5.1)
[2019-04-18] MEDS ORDERED: PANTOPRAZOLE 40 MG TABLET (FP) PO SCH (10:00)
[2019-04-18] MEDS: CARVEDILOL 25 MG TABLET (FP) PO SCH (10:03)
[2019-04-18] MEDS: FUROSEMIDE 40 MG TABLET (FP) PO SCH (10:03)
[2019-04-18] MEDS: LOSARTAN POTASSIUM 25 MG TABLET PO SCH (10:03)
[2019-04-18] MEDS: SPIRONOLACTONE 25 MG TABLET (FP) PO SCH (10:03)
--- NOTE | 2019-04-18 10:07 | PN.GI ---
GI Progress Note Subjective: Pt seen/examined at bedside, feeling better overall, still intermittent dyspnea denies chest pain currently. Feels swallowing has been ok during hospitalization. - Objective Vital Signs: Vital Signs Temperature 97.7 F 04/18/19 10:00 Pulse Rate 88 04/18/19 10:00 Respiratory Rate 18 04/18/19 10:00 Blood Pressure 122/73 04/18/19 10:00 O2 Sat by Pulse Oximetry (%) 96 04/17/19 22:00 Constitutional: Well Nourished, No Distress, Calm Cardiovascular: Yes: WNL, Regular Rate and Rhythm Respiratory: Yes: WNL, Regular, CTA Bilaterally ...Palpate: Yes: Other (Abd soft, nt, nd) Labs: CBC, BMP 04/18/19 05:40 04/18/19 05:40 INR, PTT INR 1.01 (0.83-1.09) 04/15/19 23:30 Problem List - Problems (1) Dysphagia Assessment/Plan: 58yo female with intermittent liquid and solid food dysphagia. Esophagram unremarkable. No dysphagia noted during hospitalization, tolerating regular diet. No evidence of iron deficiency. -Continue optimization from a cardiac standpoint -PPI daily -Advised to chew carefully and take small bites -Pending further cardiac evaluation, would consider EGD once optimized and reassessment in symptoms Code(s): R13.10 - DYSPHAGIA, UNSPECIFIED
--- NOTE | 2019-04-18 10:41 | PN ---
Progress Note, Physician History of Present Illness: 58 y/o female PMH HTN, HLD, systolic CHF with pacemaker c/o chest pain. The pain has been present for 2 months, is located in the mid-epigastric region, is burning in nature, radiates across her chest and LEFT arm, is made better with rest and the LEFT lateral decubitis position, on/off in course, and is 7/10. Associated symptoms include lying flat, eating meals, and was reproducible with consumption of ED orange juice. She describes additional symptoms of dysphagia to liquids and solids. She has had concurrent non-productive cough. She has not taken any antacids or PPIs nor other medications outside her home regimen of medications (below). She states that she has shortness of breath. She denies orthopnea, PND but does endorse SOB after approximately 50 feet of walking. She has not been recently ill, had sick contacts or traveled great distances. She has not have fever but has had nausea, vomiting x1 (stomach acid, non-bloody), and chills. Pt has not taken home medications since 13 Apr 2019 2/2 lapse in insurance coverage. She has moved from [place] to [place]. ER course was notable for: (1) BP of 177/102, repeat 180/93 (2) Coreg 25 mg administered (3) Lasix 40 mg administered and pt urinated x4 Recent Travel: Denies Family hx: Adopted/unaware of health of biological parents PAST MEDICAL HISTORY: HTN, HLD, systolic CHF with pacemaker PAST SURGICAL HISTORY: Pacemaker (2005), appendectomy (1993), x2, hysterectomy Social History: Smoking: never Alcohol: social Drugs: denies - Current Medication List Current Medications: Active Medications Acetaminophen (Tylenol -) 650 mg PO Q4H PRN PRN Reason: HEADACHE Last Admin: 04/17/19 19:15 Dose: 650 mg Atorvastatin Calcium (Lipitor -) 20 mg PO HS [facility] Last Admin: 04/17/19 22:05 Dose: 20 mg Carvedilol (Coreg -) 25 mg PO BID [facility] Last Admin: 04/18/19 10:03 Dose: 25 mg Furosemide (Lasix -) 40 mg PO DAILY [facility] Last Admin: 04/18/19 10:03 Dose: 40 mg Heparin Sodium (Porcine) (Heparin -) 5,000 unit SQ TID [facility] Last Admin: 04/18/19 06:54 Dose: Not Given Losartan Potassium (Cozaar -) 25 mg PO DAILY [facility] Last Admin: 04/18/19 10:03 Dose: 25 mg Pantoprazole Sodium (Protonix -) 40 mg PO DAILY [facility] Last Admin: 04/18/19 10:03 Dose: 40 mg Spironolactone (Aldactone -) 25 mg PO DAILY [facility] Last Admin: 04/18/19 10:03 Dose: 25 mg - Objective Vital Signs: Vital Signs Temperature 97.7 F 04/18/19 10:00 Pulse Rate 88 04/18/19 10:00 Respiratory Rate 18 04/18/19 10:00 Blood Pressure 122/73 04/18/19 10:00 O2 Sat by Pulse Oximetry (%) 96 04/17/19 22:00 Eyes: Yes: WNL, Conjunctiva Clear, EOM Intact HENT: Yes: WNL, Atraumatic, Normocephalic Neck: Yes: WNL, Supple, Trachea Midline Cardiovascular: Yes: WNL, Regular Rate and Rhythm Respiratory: Yes: WNL, Regular, CTA Bilaterally Gastrointestinal: Yes: WNL, Normal Bowel Sounds Genitourinary: Yes: WNL Musculoskeletal: Yes: WNL Extremities: Yes: WNL Edema: No Integumentary: Yes: WNL Neurological: Yes: WNL, Alert, Oriented ...Motor Strength: WNL Psychiatric: Yes: WNL Labs: CBC, BMP 04/18/19 05:40 04/18/19 05:40 INR, PTT INR 1.01 (0.83-1.09) 04/15/19 23:30 Problem List - Problems (1) CHF (congestive heart failure) Code(s): I50.9 - HEART FAILURE, UNSPECIFIED Qualifiers: Heart failure type: unspecified Heart failure chronicity: acute on chronic Qualified Code(s): I50.9 - Heart failure, unspecified (2) Chest pain Code(s): R07.9 - CHEST PAIN, UNSPECIFIED Qualifiers: Chest pain type: unspecified Qualified Code(s): R07.9 - Chest pain, unspecified (3) Arrhythmia Code(s): I49.9 - CARDIAC ARRHYTHMIA, UNSPECIFIED (4) DVT prophylaxis Code(s): [id number] - (5) Dyspnea on exertion Code(s): R06.09 - OTHER FORMS OF DYSPNEA (6) Full code status Code(s): Z78.9 - OTHER SPECIFIED HEALTH STATUS (7) Hyperlipemia Code(s): E78.5 - HYPERLIPIDEMIA, UNSPECIFIED (8) Hypertension Code(s): I10 - ESSENTIAL (PRIMARY) HYPERTENSION Assessment/Plan HTN, HLD, systolic CHF with pacemaker c/o atypical GI? / chest pain. The pain has been present for 2 months, is located in the mid-epigastric region, is burning in nature, radiates across her chest and LEFT arm, BI- ICD interrogation showed normaly functioning device. EKG - bivi pacing ECHO severely reduced ef Plan cont Lasix add aldactone Old records reviewed - dx nonischemic cmp Patient may be followed as the outpatient
[2019-04-18 13:53] VITALS: BP 144/95; PULSE 87; TEMP 97.8
--- NOTE | 2019-04-18 14:22 | DS ---
Physical Exam: SUBJECTIVE: Patient seen and examined OBJECTIVE: Vital Signs Period Temp Pulse Resp BP Sys/Schreiber Pulse Ox Last 24 Hr 97.2 F-98.0 F 82-92 18-18 122-144/63-95 96-98 PHYSICAL EXAM GENERAL: The patient is awake, alert, and fully oriented, in no acute distress. HEAD: Normal with no signs of trauma. EYES: PERRL, extraocular movements intact, sclera anicteric, conjunctiva clear. ENT: Ears normal, nares patent, oropharynx clear without exudates, moist mucous membranes. NECK: Trachea midline, full range of motion, supple. LUNGS: Breath sounds equal, clear to auscultation bilaterally, no wheezes, no crackles, no accessory muscle use. HEART: Regular rate and rhythm, S1, S2 without murmur, rub or gallop. ABDOMEN: Soft, nontender, nondistended, normoactive bowel sounds, no guarding, no rebound, no hepatosplenomegaly, no masses. EXTREMITIES: 2+ pulses, warm, well-perfused, no edema. NEUROLOGICAL: Cranial nerves II through XII grossly intact. Normal speech, gait not observed. PSYCH: Normal mood, normal affect. SKIN: Warm, dry, normal turgor, no rashes or lesions noted. LABS Laboratory Results - last 24 hr 04/18/19 04/18/19 05:40 05:40 WBC 4.0 RBC 4.74 Hgb 10.9 Hct 34.5 MCV 72.7 L MCH 22.9 L MCHC 31.6 L RDW 16.1 H Plt Count 175 MPV 11.0 Absolute Neuts (auto) 1.6 Neutrophils % 41.0 L Lymphocytes % 48.7 H Monocytes % 8.3 Eosinophils % 1.4 Basophils % 0.6 Nucleated RBC % 0 Sodium 138 Potassium 3.7 Chloride 104 Carbon Dioxide 28 Anion Gap 6 L BUN 16.8 Creatinine 1.0 Est GFR (CKD-EPI)AfAm 72.42 Est GFR (CKD-EPI)NonAf 62.49 Random Glucose 101 Calcium 9.0 Magnesium 1.9 Total Bilirubin 0.5 AST 16 ALT 29 Alkaline Phosphatase 94 Total Protein 7.0 Albumin 3.7 HOSPITAL COURSE: Date of Admission:04/16/19 Date of Discharge: 04/18/19 Discharge Summary Problems reviewed: Yes Reason For Visit: CONGESTIVE HEART FAILURE,CHEST PAIN Current Active Problems CHF (congestive heart failure) (Acute) Chest pain (Acute) Dysphagia (Acute) Condition: Improved - Instructions Diet, Activity, Other Instructions: Dear Mrs Grimm: Mrs Grimm. You were admitted for chest pain and your cardiac workup is negative. You were seen by Dr. Cool who advised you to follow with him by calling his office to make an appointment. Since you do not have a primary care doctor, we have assigned one for you as follows: Doctor: Dr Maurice Addres: [id number] [facility] Date/Time: April 23 at 0930 a.m.. Please bring discharge paper work. the cost for you is $150.00 for exam without blood work (lab work is extra). bring Drivers License or other form of ID. Referrals: Wolf Maurice MD [Staff Physician] - (April 23 at 0930. Please bring discharge paper work. $150.00 for exam without blood work (lab work is extra). bring Drivers License or other form of ID. ) Jessica Prasad MD [Staff Physician] - 2 Weeks Disposition: HOME - Home Medications Comprehensive Discharge Medication List: Ambulatory Orders Atorvastatin Ca [Lipitor] 20 mg PO HS 04/16/19 Carvedilol [Coreg -] 25 mg PO BID #90 tablet 04/18/19 Furosemide [Lasix] 40 mg PO DAILY #90 tablet 04/18/19 Losartan Potassium [Cozaar -] 25 mg PO DAILY #90 tablet 04/18/19 Pantoprazole Sodium [Protonix -] 40 mg PO DAILY #90 tablet.ec 04/18/19 Spironolactone [Aldactone -] 25 mg PO DAILY #90 tablet 04/18/19 Problem List - Problems (1) Chest pain Code(s): R07.9 - CHEST PAIN, UNSPECIFIED Qualifiers: Chest pain type: unspecified Qualified Code(s): R07.9 - Chest pain, unspecified (2) CHF (congestive heart failure) Code(s): I50.9 - HEART FAILURE, UNSPECIFIED Qualifiers: Heart failure type: unspecified Heart failure chronicity: acute on chronic Qualified Code(s): I50.9 - Heart failure, unspecified (3) Dysphagia Code(s): R13.10 - DYSPHAGIA, UNSPECIFIED (4) Hyperlipemia Code(s): E78.5 - HYPERLIPIDEMIA, UNSPECIFIED (5) Hypertension Code(s): I10 - ESSENTIAL (PRIMARY) HYPERTENSION - Discharge Referral Referred to [facility] No
== END 2019-04-18 16:38 | disposition home or self-care (01) ==
LOC: JER 22:11 → JERBED 04-16 01:41 → J4S 04-16 11:51
PROVIDERS: ADMIT Internal Medicine; ATTEND Nurse Practitioner Family
CPT/HCPCS: 36415; 71046-TC-FY; 71275-TC; 74220-TC-FY; 80048; 80053; 81003; 82550; 82553; 82728; 83540; 83550; 83735; 83880; 84100; 84484; 85025; 85027; 85610; 85730; 93005; 93010; 93306-TC; 99285-25; G0378; J1644